=== PATIENT | male | born 1955 | race Two or more races ===

== ENCOUNTER 2018-01-24 08:16 | Outpatient (CLI) | payer OTHER ==
[~2018-01-24 08:16] MED LIST: AMBIEN5 MG; CRESTOR5 MG; ZYLOPRIM300 MG
== END 2018-01-24 08:45 | disposition home or self-care (01) ==
LOC: RAD 501 08:16
DX: Z96.1 Presence of intraocular lens (principal)

== ENCOUNTER → 2018-08-20 | Outpatient (CLI) | payer OTHER | END | disposition home or self-care (01) | LOC: NUCLEAR 07:00 | DX: R07.89 Other chest pain (principal) | CPT/HCPCS: 78452; 93017; A9500 ==

== ENCOUNTER 2019-08-07 13:20 | Outpatient (CLI) | payer OTHER | END 2019-08-07 13:29 | disposition home or self-care (01) | LOC: RAD 13:20 | DX: R06.02 Shortness of breath (principal) ==

== ENCOUNTER 2020-02-26 14:37 | Outpatient (CLI) | payer OTHER | END 2020-02-26 14:52 | disposition home or self-care (01) | LOC: TOM 14:37 | PROVIDERS: ATTEND Internal Medicine Pulmonary Disease | DX: J43.2 Centrilobular emphysema (principal); Z87.891 Personal history of nicotine dependence; R06.02 Shortness of breath ==

== ENCOUNTER 2021-01-27 07:20 | Outpatient (CLI) | payer OTHER | END 2021-01-27 07:29 | disposition home or self-care (01) | LOC: NUCLEAR 07:20 | PROVIDERS: ATTEND Internal Medicine | DX: I25.10 Atherosclerotic heart disease of native coronary artery without angina pectoris (principal) ==

== ENCOUNTER 2021-06-10 11:50 | Emergency (ER) | payer OTHER ==
[~2021-06-10] VITALS: Ht 170.2 cm; Wt 77.1 kg
[2021-06-10] MEDS ORDERED: PLAVIX75 MG PO ×2 (13:10→13:12)
[2021-06-10] MEDS ORDERED: AMIODARONE HCL400 MG PO (13:10)
[2021-06-10] MEDS ORDERED: LIPITOR20 MG PO (13:11)
[2021-06-10] MEDS ORDERED: ELIQUIS5 MG PO (13:11)
== END 2021-06-10 21:34 | disposition designated cancer center or children's hospital (05) ==
LOC: ER 11:50
DX: R06.02 Shortness of breath (principal); R53.1 Weakness; R94.31 Abnormal electrocardiogram [ECG] [EKG]; I10 Essential (primary) hypertension; Z20.822 Contact with and (suspected) exposure to COVID-19

== ENCOUNTER → 2021-11-21 | Outpatient (CLI) | payer OTHER ==
[~2021-11-21] MED LIST changes: +AMIODARONE HCL400 MG PO; +ELIQUIS5 MG PO; +LIPITOR20 MG PO; +PLAVIX75 MG PO
== END | disposition home or self-care (01) ==
LOC: RAD 09:29
PROVIDERS: ATTEND Internal Medicine
DX: I35.1 Nonrheumatic aortic (valve) insufficiency (principal); I27.20 Pulmonary hypertension, unspecified

== ENCOUNTER 2022-06-14 09:50 | Outpatient (CLI) | payer OTHER | END 2022-06-14 10:00 | disposition home or self-care (01) | LOC: SONOGRAMA 09:50 | DX: R19.09 Other intra-abdominal and pelvic swelling, mass and lump (principal) ==

== ENCOUNTER 2024-03-11 11:58 | Outpatient (CLI) | payer OTHER | END 2024-03-11 12:11 | disposition home or self-care (01) | LOC: RAD 11:58 | DX: M54.2 Cervicalgia (principal); M54.9 Dorsalgia, unspecified; R29.898 Other symptoms and signs involving the musculoskeletal system ==

== ENCOUNTER 2025-01-14 10:03 | Outpatient (CLI) | payer OTHER | END 2025-01-14 10:18 | disposition home or self-care (01) | LOC: TOM 10:03 | PROVIDERS: ATTEND Internal Medicine Pulmonary Disease | DX: J43.2 Centrilobular emphysema (principal); R91.8 Other nonspecific abnormal finding of lung field ==

== ENCOUNTER 2025-02-26 09:53 | Outpatient (CLI) | payer OTHER | END 2025-02-26 09:57 | disposition home or self-care (01) | LOC: TOM 09:53 | PROVIDERS: ATTEND Internal Medicine Gastroenterology | DX: K56.600 Partial intestinal obstruction, unspecified as to cause (principal); Z86.0101 Personal history of adenomatous and serrated colon polyps ==

== ENCOUNTER 2025-03-18 09:18 | Outpatient (CLI) | payer OTHER | END 2025-03-18 09:24 | disposition home or self-care (01) | LOC: MRI 09:18 | DX: I63.89 Other cerebral infarction (principal); M54.50 Low back pain, unspecified | CPT/HCPCS: 72148 ==